=== PATIENT | male | born 1955 | race African-American/Black ===

== ENCOUNTER 2019-03-04 09:42 | Outpatient (CLI) | payer OTHER ==
--- NOTE | 2019-03-04 12:13 | ULT ---
HEPATIC ULTRASOUND WITH DOPPLER: Date: 03/04/19 Moon scale images of liver obtained. Color Doppler with spectral analysis of the hepatic vessels obta ined. INDICATION: Hepatitis C. FINDINGS: Liver is homogeneous and unremarkable on ultrasound. There is a small, 1.0 cm, cyst seen in the right lobe of the liver. Gallbladder is unremarkable with no evidence of gallstones. Common duct is normal caliber at 4 mm. Doppler studies show normal flow in the portal veins, hepatic veins, hepatic artery, and splenic vein . The spleen is imaged and is normal size, measured at 9 cm. The pancreas is imaged and appears unremarkable as visualized. The right kidney is not evaluated. The right kidney is partially imaged and appears unremarkable wher e visualized. IMPRESSION: Unremarkable hepatic ultrasound and Doppler. POS: [facility]
== END 2019-03-04 09:43 | disposition home or self-care (01) ==
LOC: SCSULT 09:42
DX: B18.2 Chronic viral hepatitis C (principal)
CPT/HCPCS: 76705

== ENCOUNTER 2019-03-15 09:22 | Outpatient (CLI) | payer OTHER ==
--- NOTE | 2019-03-16 07:25 | ULT ---
BILATERAL CAROTID DUPLEX ULTRASOUND: HISTORY: Cerebral infarction. TECHNIQUE: Grayscale, color-flow and spectral Doppler ultrasound imaging of the extracranial carotid artery syst ems was performed bilaterally. FINDINGS: There is significant calcified atherosclerotic plaque seen in the region of the carotid bulbs and pro ximal internal carotid arteries bilaterally. Prominent intimal thickening is present within the common carotid arteries bilaterally. There is no hemodynamically significant stenosis in the bilateral internal carotid arteries according to the peak systolic velocities and the ICA/CCA ratios. The peak systolic velocity in the right ICA measures 76.6% cm/s. The peak systolic velocity in the left ICA measures 8276% cm/s. The right ICA/CCA ratio is 0.49, and the left ICA/CCA ratio is 0.24. Vertebral arteries: Antegrade flow is demonstrated in the vertebral arteries bilaterally. IMPRESSION: 1. Prominent calcified atherosclerotic plaque in the region of the carotid bulbs and proximal interna l carotid arteries with prominent intimal thickening involving the common carotid arteries bilaterally. However, there is no hemodynamically significant stenosis within the bilateral internal carotid arteries based on velocity measurements.
== END 2019-03-15 09:23 | disposition home or self-care (01) ==
LOC: ULT 09:22
DX: I63.233 Cerebral infarction due to unspecified occlusion or stenosis of bilateral carotid arteries (principal)
CPT/HCPCS: 93880